=== PATIENT | male | born 1960 ===

== ENCOUNTER 2018-05-31 01:01 | Emergency (ER) | payer OTHER ==
[2018-05-31 01:16] VITALS: RESP 18
[2018-05-31] MEDS ORDERED: Sodium Chloride 0.9% 1,000 ML IV STA (01:32)
--- NOTE | 2018-05-31 01:38 | ED PDOC ---
"HPI: Male Pain History Per: Patient, Family (brother) Onset/Duration Of Symptoms: Hrs Current Symptoms Are (Timing): Still Present Pain Scale Rating Of: 10 Quality Of Discomfort: Sharp Associated Symptoms: Nausea, Vomiting. denies: Fever, Chills Additional Complaint(s): CC: L flank pain HPI: 58 YO male with no sig PMH presents to [facility] ED for L flank pain. Pt states that the pain started about 2 hrs ago and describes it as sharp in nature. No radiation of the pain but is associated with some supra-pubic pain. No similar episode in the past. Denies chest pain, palpatations, dyspnea, d/c, chills and fever. PMHx: denies SurgHx: denies SH: social ETOH, denies smoking and illicit drug use FH: denies Allergies: NKDA Meds: none <Rupal Amato - Last Filed: 05/31/18 04:40> <Ric Arizmendi - Last Filed: 05/31/18 05:35> Time Seen by Provider: 05/31/18 01:09 Chief Complaint (Nursing): Male Genitourinary Supervising Attending Note - Supervising Attending Note The Documented history was done by the: Physician Gear Hobber The documented physical exam was done by the: Physician Gear Hobber - Attestation: I have personally seen and examined this patient.: Yes I have fully participated in the care of the patient.: Yes I have reviewed all pertinent clinical information, including history, physical exam and plan: Yes <Ric Arizmendi - Last Filed: 05/31/18 05:35> Past Medical History Vital Signs: Last Vital Signs Temp 98.2 F 05/31/18 01:13 Pulse 95 H 05/31/18 01:13 Resp 18 05/31/18 01:13 BP 138/102 H 05/31/18 01:13 Pulse Ox 98 05/31/18 01:13 - Surgical History Surgical History: No Surg Hx - Family History Family History: States: No Known Family Hx - Living Arrangements Living Arrangements: With Family - Social History Alcohol: Social Drugs: Denies <Rupal Amato - Last Filed: 05/31/18 04:40> Vital Signs: Last Vital Signs Temp 98.2 F 05/31/18 01:13 Pulse 95 H 05/31/18 01:13 Resp 18 05/31/18 01:13 BP 138/102 H 05/31/18 01:13 Pulse Ox 98 05/31/18 04:43 <Ric Arizmendi - Last Filed: 05/31/18 05:35> - Home Medications Home Medications: Ambulatory Orders Medication Instructions Recorded Ciprofloxacin [Cipro] 500 mg PO Q12 #14 tab 05/31/18 Tamsulosin [Flomax] 0.4 mg PO DAILY #10 cap 05/31/18 - Allergies Allergies/Adverse Reactions: Allergies Allergy/AdvReac Type Severity Reaction Status Date / Time No Known Allergies Allergy Verified 05/31/18 01:13 Review of Systems Constitutional: Negative for: Fever, Chills Cardiovascular: Negative for: Chest Pain, Palpitations Respiratory: Negative for: Cough, Shortness of Breath Gastrointestinal: Positive for: Nausea, Vomiting, Abdominal Pain (suprapubic ). Negative for: Diarrhea, Constipation Genitourinary Male: Negative for: Dysuria, Frequency, Hematuria Neurological: Negative for: Weakness, Numbness <Lm,Rupal - Last Filed: 05/31/18 04:40> Physical Exam - Physical Exam Appears: Positive for: Uncomfortable, In Acute Distress Head Exam: Positive for: NORMAL INSPECTION Skin: Negative for: Diaphoresis, Pallor Cardiovascular/Chest: Positive for: Regular Rate, Rhythm, Tachycardia. Negative for: Murmur Respiratory: Positive for: Normal Breath Sounds Gastrointestinal/Abdominal: Positive for: Tenderness (mild suprapubic ). Negative for: Distended, Guarding Back: Positive for: Normal Inspection. Negative for: L CVA Tenderness, R CVA Tenderness Extremity: Positive for: Normal ROM. Negative for: Tenderness, Pedal Edema Neurologic/Psych: Positive for: Alert <Lm,Rupal - Last Filed: 05/31/18 04:40> - Laboratory Results Result Diagrams: 05/31/18 01:43 05/31/18 01:43 - ECG O2 Sat by Pulse Oximetry: 98 - Progress ED Course And Treament: 58 YO male with L flank pain. Elevated BP with tachycardia likely 2/2 to acute pain. -cbc, bmp, UA -Toradol and zofran -Morphine -IVF -CT abd pelvis Pt seen and re-evaluated Workup sig for, CBC with leukocytosis, UA sig for RBC Feeling better post Toradol and zofran CT abd and pelvis EXAM: CT Abdomen and Pelvis Without Intravenous Contrast EXAM DATE/TIME: 05/31/18 (1:34am) CLINICAL HISTORY: 58 year old male with left flank pain TECHNIQUE: Axial computed tomography images of the abdomen and pelvis without intravenous contrast. All CT scans at this facility use at least one of these dose optimization techniques: automated exposure control; mA and/or kV adjustment per patient size (includes targeted exams where dose is matched to clinical indication); or iterative reconstruction. COMPARISON: No relevant prior studies available FINDINGS: Lung bases: Unremarkable. No mass nor consolidation. ABDOMEN: Liver: Unremarkable. No solid mass. Gallbladder and bile ducts: Unremarkable. No calcified stones. No ductal dilatation. Pancreas: Unremarkable. No ductal dilatation. Spleen: Unremarkable. No splenomegaly. Adrenals: Unremarkable. No mass. Kidneys and ureters: Mild left hydroureteronephrosis. No radiodense urinary tract stone is seen. Stomach and bowel: Unremarkable. No bowel obstruction. No mucosal thickening. PELVIS: Appendix: A normal appendix is visualized. Bladder: Not optimally distended at this time. No stones. Reproductive: Unremarkable as visualized. ABDOMEN and PELVIS: Intraperitoneal space: Unremarkable. No free air. No significant fluid collection. Bones/joints: No acute fracture nor dislocation. Soft tissues: Unremarkable. Vasculature: Unremarkable. No abdominal aortic aneurysm. MICHAEL MICHAELS | Preliminary Radiology Report [employer] (QA) DISCREPANCY? If there is a discrepancy between the preliminary and final interpretation, please notify [facility] via [email or web address]. If you do not have access to our QA portal, call our QA team at [phone] CONFIDENTIALITY STATEMENT This report is intended only for the use of the referring physician, and only in accordance with law, If you received this in error, call [phone] Page 2 of 2 Lymph nodes: Unremarkable. No enlarged lymph nodes. IMPRESSION: Mild left hydroureteronephrosis. No radiodense urinary tract stone is seen. The findings may represent recent passage of a stone Pt seen and re-evaluated NAD, states that his pain has resolved now -PO flomax, 1x Rocephin Will d/c pt home with Cipro and flomax. Follow up with PMD in 1 week. Pt educated on renal stones, encouraged to increase PO intake ER precautions given <Rupal Amato - Last Filed: 05/31/18 04:40> - Laboratory Results Result Diagrams: 05/31/18 01:43 05/31/18 01:43 <Ric Arizmendi - Last Filed: 05/31/18 05:35> Disposition - Disposition Disposition: Routine/Home Disposition Time: 04:43 <Rupal Amato - Last Filed: 05/31/18 04:40> <Ric Arizmendi - Last Filed: 05/31/18 05:35> - Clinical Impression Clinical Impression: Ureteral calculus - Disposition Referrals: Mulu Spencer MD [Medical Doctor] - Condition: STABLE Prescriptions: Ciprofloxacin [Cipro] 500 mg PO Q12 #14 tab Tamsulosin [Flomax] 0.4 mg PO DAILY #10 cap Instructions: Kidney Stones in Adults Forms: [facility] (Uzbek) Print Language: KISWAHILI"
[2018-05-31 01:53] LABS: BASO # 0.1 K/uL (0.0-0.2); BASO % 0.4 % (0.0-2.0); EOS # 0.2 K/uL (0.0-0.7); EOS % 1.5 % (0.0-4.0); LYMPH # 2.4 K/uL (1.0-4.3); LYMPH % 15.7 % (20.0-40.0); MEAN CELL VOLUME 95.3 fl (80.0-94.0); MEAN CORPUSCULAR HEMOGLOBIN 32.9 pg (27.0-31.0); MEAN CORPUSCULAR HGB CONC 34.6 g/dL (33.0-37.0); MEAN PLATELET VOLUME 7.6 fl (7.2-11.7); MONO # 0.7 K/uL (0.0-0.8); MONO % 4.5 % (0.0-10.0); NEUT # 11.8 K/uL (1.8-7.0); NEUT % 77.9 % (50.0-75.0); RBC 5.15 Mil/uL (4.40-5.90); RED CELL DISTRIBUTION WIDTH 12.9 % (11.5-14.5); WHITE BLOOD COUNT 15.2 K/uL (4.8-10.8)
[2018-05-31 01:55] LABS: SQUAMOUS EPITHIAL < 1 /hpf (0-5); URINE BACTERIA RARE (<OCC); URINE BILIRUBIN NEGATIVE (NEGATIVE); URINE BLOOD LARGE (NEGATIVE); URINE CLARITY CLOUDY (Clear); URINE COLOR AMBER (YELLOW); URINE GLUCOSE (UA) NEG (Normal); URINE LEUKOCYTE ESTERASE NEG Leu/uL (Negative); URINE PROTEIN 100 mg/dL (NEGATIVE); URINE UROBILINOGEN 0.2-1.0 mg/dL (0.2-1.0)
[2018-05-31] MEDS ORDERED: Morphine 4 MG/ML VIAL IVP STA (03:02)
[2018-05-31] MEDS ORDERED: Morphine 4 MG/ML VIAL ONE (03:05)
[2018-05-31 03:10] LABS: BLOOD UREA NITROGEN 20 mg/dl (9-20); CALCIUM 9.2 mg/dL (8.4-10.2); GFR AFRICAN-AMERICAN > 60; GFR NON-AFRICAN AMERICAN > 60
[2018-05-31] MEDS ORDERED: cefTRIAXone (Rocephin) 1 gm Inj ONE (04:07)
[2018-05-31 06:37] VITALS: BP 126/88; PULSE 88; TEMP 98.4; O2SAT 99
--- NOTE | 2018-05-31 12:12 | CT ---
PROCEDURE: CT Abdomen and Pelvis without intravenous contrast HISTORY: L flank pain COMPARISON: None. TECHNIQUE: Contiguous images were obtained from the domes of the diaphragms to the upper thighs without the administration of intravenous contrast. Oral contrast was not administered. Radiation dose: Total exam DLP = 324.2 mGy-cm. This CT exam was performed using one or more of the following dose reduction techniques: Automated exposure control, adjustment of the mA and/or kV according to patient size, and/or use of iterative reconstruction technique. FINDINGS: LOWER THORAX: Unremarkable. LIVER: Unremarkable. No gross lesion or ductal dilatation. GALLBLADDER AND BILE DUCTS: Unremarkable. PANCREAS: Unremarkable. No gross lesion or ductal dilatation. SPLEEN: Unremarkable. ADRENALS: Unremarkable. No mass. KIDNEYS AND URETERS: Punctate calculus in the region of the left ureterovesicular junction. Mild left hydroureteronephrosis. No solid mass. VASCULATURE: Unremarkable. No aortic aneurysm. BOWEL: Small hiatal hernia. No obstruction. No gross mural thickening. APPENDIX: Unremarkable. Normal appendix. PERITONEUM: Unremarkable. No free fluid. No free air. LYMPH NODES: Unremarkable. No enlarged lymph nodes. BLADDER: Unremarkable. REPRODUCTIVE: Unremarkable. BONES: Mild compression deformity of L1. Grade 1 retrolisthesis of L1 on L2. Narrowing of the L1-2 disc space. OTHER FINDINGS: None. IMPRESSION: Mild left hydroureteronephrosis. Punctate calculus in the region of the left ureterovesicular junction. A larger calculus has likely passed.
== END 2018-05-31 06:10 | disposition home or self-care (01) ==
LOC: H.ER 01:01
DX: N13.2 Hydronephrosis with renal and ureteral calculous obstruction (principal)
CPT/HCPCS: 74176; 80048; 81003; 85025; 96374; 96375; 99284; J0696; J1885; J2270; J2405; J7030